=== PATIENT | female | born 1965 | race Caucasian/White ===

== ENCOUNTER 2024-09-16 11:54 | Inpatient (IN) | payer MEDICAID, OTHER ==
[~2024-09-16] VITALS: Ht 182.9 cm; Wt 73.7 kg
[2024-09-16 12:46] LABS: BASOPHILS % 0.5 % (0.0-2.0); EOSINOPHILS % 0.8 % (0.0-5.0); HEMATOCRIT. 32.6 % (36.0-48.0); HEMOGLOBIN. 10.6 g/dL (12.0-16.0); LYMPHOCYTES % 25.6 % (20.0-50.0); MEAN CORPUSCULAR HEMOGLOBIN 29.5 pg (28.0-32.0); MEAN CORPUSCULAR HGB CONC 32.5 g/dL (31.0-37.0); MEAN CORPUSCULAR VOLUME 90.7 fL (81.0-99.0); MEAN PLATELET VOLUME 7.5 fl (7.4-10.4); MONOCYTES % 8.8 % (2.0-8.0); NEUTROPHILS % 64.3 % (40.0-76.0); PLATELET 294 x1000/uL (130-400); RED BLOOD CELL COUNT 3.59 mill/uL (4.2-5.4); RED CELL DISTRIBUTION WIDTH 19.4 % (11.6-14.6); WHITE BLOOD COUNT 9.1 x1000/uL (4.5-11.0)
[2024-09-16 12:59] LABS: TROPONIN I HIGH SENSITIVITY 23 ng/L (3.0-34)
[2024-09-16 13:04] LABS: CHLORIDE 101 mEq/L (98-107); POTASSIUM 3.6 mEq/L (3.5-5.1); SODIUM 135 mEq/L (136-145)
[2024-09-16 13:07] LABS: CALCIUM 11.1 mg/dL (8.7-10.4); CARBON DIOXIDE 24 mEq/L (21-32)
[2024-09-16 13:10] LABS: CREATININE 0.8 mg/dL (0.6-1.0); UREA NITROGEN BLOOD 23 mg/dL (9-23)
[2024-09-16 13:12] LABS: GLUCOSE 115 mg/dL (70-105)
[2024-09-16 13:14] LABS: ALANINE AMINOTRANSFERASE 39 IU/L (10-49); ALBUMIN 4.1 g/dL (3.2-4.8); ASPARTATE AMINOTRANSFERASE 23 IU/L (<34); BILIRUBIN TOTAL 0.4 mg/dL (0.1-1.0); PROTEIN TOTAL 7.8 g/dL (6.0-8.3)
[2024-09-16] MEDS: ACETAMINOPHEN 325MG TABLET PO STA (16:07)
[2024-09-16] MEDS: ASPIRIN 81MG TABLET PO ONE (17:04)
[2024-09-16] MEDS ORDERED: GUAIFENESIN 200MG/10ML SUGAR FREE UDC PO PRN (17:15)
[2024-09-16] MEDS ORDERED: IPRATROPIUM/ALBUTEROL 0.5-3(2.5)MG/3ML NEB HHN PRN (17:15)
[2024-09-16] MEDS ORDERED: ACETAMINOPHEN 325MG TABLET PO PRN (17:15)
[2024-09-16] MEDS ORDERED: MAGNESIUM/ALUMINUM HYDROXIDE/SIMETHICONE 30ML UDC PO PRN (17:15)
[2024-09-16] MEDS ORDERED: ENOXAPARIN 40MG/0.4ML SYR SUBCUT SCH (17:15)
[2024-09-16] MEDS ORDERED: DOCUSATE SODIUM 100MG CAPSULE PO PRN (17:15)
[2024-09-16] MEDS ORDERED: ONDANSETRON HCL 4MG/2ML INJ IV PRN (17:15)
[2024-09-16] MEDS ORDERED: LORAZEPAM 2MG/ML INJ IV NR (17:45)
[2024-09-16 19:41] VITALS: BP 129/85; PULSE 95; RESP 19; TEMP 36.8
[2024-09-16 20:00] VITALS: BP 127/69; PULSE 76; RESP 24; TEMP 36.9; O2SAT 100
[2024-09-16 20:32] LABS: TROPONIN I HIGH SENSITIVITY 23 ng/L (3.0-34)
[2024-09-16 21:18] LABS: CLARITY URINE CLEAR (CLEAR); COLOR URINE YELLOW (YELLOW); GLUCOSE URINE NEGATIVE (NEGATIVE); KETONES URINE NEGATIVE (NEGATIVE); LEUKOCYTE ESTERASE URINE TRACE (NEGATIVE); NITRITE URINE NEGATIVE (NEGATIVE); OCCULT BLOOD URINE NEGATIVE (NEGATIVE); PROTEIN URINE NEGATIVE (NEGATIVE); SPECIFIC GRAVITY URINE 1.014 (1.005-1.030); UROBILINOGEN URINE 0.2 E.U./dL (0.2-1.0)
[2024-09-16 21:21] LABS: *AMPHETAMINES SCREEN URINE NEGATIVE (NEGATIVE); *BARBITURATES SCREEN URINE NEGATIVE (NEGATIVE); *BENZODIAZEPINES SCREEN URINE NEGATIVE (NEGATIVE); *COCAINE SCREEN URINE NEGATIVE (NEGATIVE); CANNABINOID URINE SCREEN NEGATIVE (NEGATIVE); ECSTASY MDMA SCREEN URINE NEGATIVE (NEGATIVE); METHADONE URINE SCREEN NEGATIVE (NEGATIVE); OPIATES URINE SCREEN PRESUMPTIVE POSITIVE (NEGATIVE); PHENCYCLIDINE URINE SCREEN NEGATIVE (NEGATIVE)
[2024-09-16 21:26] LABS: RBC URINE NONE SEEN /hpf (0-2); SQUAMOUS EPITHELIAL CELL URINE 1+ /lpf (RARE/1+)
[2024-09-16 21:27] LABS: BACTERIA URINE NONE SEEN
[2024-09-16] MEDS: SODIUM CHLORIDE 0.9% 1,000 ML IV SCH (21:34)
[2024-09-16] MEDS: ACETAMINOPHEN 325MG TABLET PO PRN (21:41)
[2024-09-16] MEDS: ATORVASTATIN CALCIUM 40MG TABLET PO SCH (22:52)
[2024-09-16] MEDS: ASPIRIN 81MG TABLET PO NR (22:52)
[2024-09-16] MEDS: MELATONIN 3MG TABLET PO SCH (23:44)
[2024-09-17] VITALS: BP 129/57; PULSE 76; RESP 22; TEMP 36.8; O2SAT 96
[2024-09-17 00:18] LABS: CHLORIDE 101 mEq/L (98-107); POTASSIUM 3.7 mEq/L (3.5-5.1); SODIUM 136 mEq/L (136-145)
[2024-09-17 00:19] LABS: CALCIUM 10.8 mg/dL (8.7-10.4); CARBON DIOXIDE 25 mEq/L (21-32); PROTHROMBIN TIME 10.9 sec (9.6-11.0)
[2024-09-17 00:24] LABS: CREATININE 0.8 mg/dL (0.6-1.0); GLUCOSE 114 mg/dL (70-105); TRIGLYCERIDE 194 mg/dL (0-150); UREA NITROGEN BLOOD 31 mg/dL (9-23)
[2024-09-17 00:25] LABS: LDL CHOLESTEROL 88 mg/dL (5-100); TROPONIN I HIGH SENSITIVITY 24 ng/L (3.0-34)
[2024-09-17 00:26] LABS: CHOLESTEROL 154 mg/dL (<200); CREATINE KINASE 25 IU/L (34-145); HDL CHOLESTEROL 37 mg/dL (>65)
[2024-09-17] MEDS ORDERED: MECLIZINE 25MG TABLET PO PRN (01:15)
[2024-09-17 04:00] VITALS: BP 156/67; PULSE 72; RESP 20; TEMP 36.7; O2SAT 98
[2024-09-17 08:00] VITALS: BP 148/48; PULSE 74; RESP 23; TEMP 36.9; O2SAT 96
[2024-09-17] MEDS ORDERED: CLOPIDOGREL 75MG TABLET PO SCH (09:00)
[2024-09-17] MEDS: PANTOPRAZOLE SODIUM 40 MG/VIAL IV SCH (09:57)
[2024-09-17 12:00] VITALS: BP 146/70; PULSE 78; RESP 19; TEMP 36.3; O2SAT 98
[2024-09-17 16:00] VITALS: PULSE 101; RESP 16
[2024-09-17 16:14] LABS: CARBON DIOXIDE 24 mEq/L (21-32); CHLORIDE 106 mEq/L (98-107); POTASSIUM 4.2 mEq/L (3.5-5.1); SODIUM 139 mEq/L (136-145)
[2024-09-17 16:15] LABS: CALCIUM 10.7 mg/dL (8.7-10.4)
[2024-09-17 16:19] LABS: CREATININE 0.8 mg/dL (0.6-1.0); GLUCOSE 126 mg/dL (70-105); IRON 46 ug/dL (50-170); TROPONIN I HIGH SENSITIVITY 20 ng/L (3.0-34)
[2024-09-17 16:20] LABS: UREA NITROGEN BLOOD 22 mg/dL (9-23)
[2024-09-17 16:21] LABS: ALANINE AMINOTRANSFERASE 34 IU/L (10-49); ALBUMIN 3.8 g/dL (3.2-4.8); ASPARTATE AMINOTRANSFERASE 23 IU/L (<34); CREATINE KINASE 32 IU/L (34-145)
[2024-09-17 16:22] LABS: BILIRUBIN TOTAL 0.3 mg/dL (0.1-1.0); PHOSPHORUS 2.8 mg/dL (2.5-4.9); TOTAL IRON BINDING CAPACITY 87 ug/dl (250-425)
[2024-09-17 16:23] LABS: THYROID STIMULATING HORMONE < 0.10 uIU/mL (0.55-4.78)
[2024-09-17 16:24] LABS: T4 FREE 1.97 ng/dL (0.89-1.76)
[2024-09-17] MEDS ORDERED: AMLODIPINE 10MG TABLET PO SCH (18:30)
[2024-09-17] MEDS: AMMONIUM LACTATE 12% LOTION 240ML TOP SCH (19:46)
[2024-09-17] MEDS: MAGNESIUM 2 G PREMIX 50 ML IV NR (19:46)
[2024-09-17] MEDS: SODIUM CHLORIDE 0.9% 1,000 ML IV SCH (19:49)
[2024-09-17 20:04] VITALS: BP 153/74; PULSE 78; RESP 22; TEMP 37; O2SAT 98
[2024-09-18] VITALS (7 sets, daily range): BP systolic 151–199; BP diastolic 70–90; PULSE 78–97; RESP 18–27; TEMP 36.6–36.9; O2SAT 94–100
[2024-09-18 07:42] LABS: HEMATOCRIT. 30.3 % (36.0-48.0); HEMOGLOBIN. 10.1 g/dL (12.0-16.0)
[2024-09-18 07:47] LABS: BASOPHILS % 0.8 % (0.0-2.0); EOSINOPHILS % 2.3 % (0.0-5.0); MEAN CORPUSCULAR HEMOGLOBIN 30.5 pg (28.0-32.0); MEAN CORPUSCULAR HGB CONC 33.5 g/dL (31.0-37.0); MEAN CORPUSCULAR VOLUME 91.2 fL (81.0-99.0); MEAN PLATELET VOLUME 7.8 fl (7.4-10.4); MONOCYTES % 9.8 % (2.0-8.0); NEUTROPHILS % 53.1 % (40.0-76.0); PLATELET 267 x1000/uL (130-400); RED BLOOD CELL COUNT 3.32 mill/uL (4.2-5.4); RED CELL DISTRIBUTION WIDTH 18.4 % (11.6-14.6); WHITE BLOOD COUNT 6.5 x1000/uL (4.5-11.0)
[2024-09-18 08:14] LABS: CARBON DIOXIDE 25 mEq/L (21-32); CHLORIDE 108 mEq/L (98-107); SODIUM 140 mEq/L (136-145)
[2024-09-18 08:15] LABS: CALCIUM 10.6 mg/dL (8.7-10.4)
[2024-09-18 08:20] LABS: CREATININE 0.8 mg/dL (0.6-1.0); GLUCOSE 110 mg/dL (70-105); UREA NITROGEN BLOOD 21 mg/dL (9-23)
[2024-09-18 08:37] LABS: THYROID STIMULATING HORMONE < 0.10 uIU/mL (0.55-4.78)
[2024-09-18] MEDS: AMLODIPINE 5MG TABLET PO SCH ×2 (10:18→21:28)
[2024-09-18] MEDS: ASPIRIN 81MG TABLET PO SCH (10:19)
[2024-09-18] MEDS ORDERED: HYDROXYZINE 25MG TABLET PO PRN (11:30)
[2024-09-18] MEDS: SERTRALINE HCL 25MG TABLET PO SCH (13:14)
[2024-09-18] MEDS: LORAZEPAM 0.5MG TABLET PO PRN (17:28)
[2024-09-18] MEDS: BUSPIRONE HCL 5MG TABLET PO SCH (21:28)
[2024-09-18] MEDS: METHIMAZOLE 5MG TABLET PO SCH (21:29)
[2024-09-19] VITALS (7 sets, daily range): BP systolic 148–189; BP diastolic 72–98; PULSE 82–106; RESP 16–31; TEMP 36.6–37.2; O2SAT 94–97
[2024-09-19] MEDS: HYDRALAZINE 20MG/ML VIAL IV PRN (01:06)
[2024-09-19 06:55] LABS: CALCIUM 10.3 mg/dL (8.7-10.4); CHLORIDE 108 mEq/L (98-107); POTASSIUM 3.7 mEq/L (3.5-5.1); SODIUM 141 mEq/L (136-145)
[2024-09-19 06:56] LABS: CARBON DIOXIDE 21 mEq/L (21-32)
[2024-09-19 07:02] LABS: CREATININE 0.7 mg/dL (0.6-1.0); GLUCOSE 116 mg/dL (70-105); UREA NITROGEN BLOOD 12 mg/dL (9-23)
[2024-09-19 07:09] LABS: EOSINOPHILS % 1.4 % (0.0-5.0); HEMATOCRIT. 31.3 % (36.0-48.0); HEMOGLOBIN. 10.1 g/dL (12.0-16.0); LYMPHOCYTES % 27.6 % (20.0-50.0); MEAN CORPUSCULAR HEMOGLOBIN 29.3 pg (28.0-32.0); MEAN CORPUSCULAR HGB CONC 32.1 g/dL (31.0-37.0); MEAN CORPUSCULAR VOLUME 91.2 fL (81.0-99.0); MEAN PLATELET VOLUME 8.4 fl (7.4-10.4); MONOCYTES % 7.1 % (2.0-8.0); NEUTROPHILS % 62.9 % (40.0-76.0); PLATELET 200 x1000/uL (130-400); RED BLOOD CELL COUNT 3.43 mill/uL (4.2-5.4); RED CELL DISTRIBUTION WIDTH 18.4 % (11.6-14.6); WHITE BLOOD COUNT 8.1 x1000/uL (4.5-11.0)
[2024-09-19] MEDS: PANTOPRAZOLE 40MG DR TABLET PO SCH (11:21)
[2024-09-19] MEDS: CLONIDINE 0.1MG TABLET PO SCH (14:56)
[2024-09-19] MEDS ORDERED: AMLO5TAB88 PO (15:23)
[2024-09-19] MEDS ORDERED: LIP40 PO (15:23)
[2024-09-19] MEDS ORDERED: CLON0.1T PO (15:23)
[2024-09-19] MEDS ORDERED: BUSP5TAB3 PO (15:23)
[2024-09-19] MEDS ORDERED: SERT25TA74 PO (15:23)
[2024-09-19] MEDS ORDERED: ASPI-1160 PO (15:23)
[2024-09-19] MEDS ORDERED: METH-371 PO (15:23)
[2024-09-19] MEDS: CLONIDINE 0.1MG TABLET PO PRN (16:48)
[2024-09-20] VITALS: BP 148/83; PULSE 76; RESP 18; TEMP 36.7; O2SAT 98
[2024-09-20 04:00] VITALS: BP 139/79; PULSE 83; RESP 17; TEMP 36.5; O2SAT 97
[2024-09-20 08:00] VITALS: BP 150/73; PULSE 76; RESP 24; TEMP 37.2; O2SAT 100
[2024-09-20 12:00] VITALS: BP 141/91; PULSE 91; RESP 25; TEMP 36.7; O2SAT 97
[2024-09-20 12:25] VITALS: TEMP 98.1
== END 2024-09-20 16:40 | disposition home health service (06) | DRG 313 ==
LOC: ER 13:23 → EDBEDREQ 16:53 → EDBEDREQTM 16:53 → 3WST 18:28
PROVIDERS: ADMIT Hospitalist; ATTEND Hospitalist
DX: R07.89 Other chest pain (principal); I69.354 Hemiplegia and hemiparesis following cerebral infarction affecting left non-dominant side; D64.9 Anemia, unspecified; F41.0 Panic disorder [episodic paroxysmal anxiety]; I10 Essential (primary) hypertension; I44.7 Left bundle-branch block, unspecified; I48.0 Paroxysmal atrial fibrillation; R26.89 Other abnormalities of gait and mobility; F31.9 Bipolar disorder, unspecified; E05.90 Thyrotoxicosis, unspecified without thyrotoxic crisis or storm; E83.52 Hypercalcemia; F41.1 Generalized anxiety disorder; E11.65 Type 2 diabetes mellitus with hyperglycemia; E78.5 Hyperlipidemia, unspecified; G83.9 Paralytic syndrome, unspecified; I11.9 Hypertensive heart disease without heart failure; K59.00 Constipation, unspecified; L89.619 Pressure ulcer of right heel, unspecified stage; Z74.01 Bed confinement status; Z79.01 Long term (current) use of anticoagulants; Z79.02 Long term (current) use of antithrombotics/antiplatelets; Z79.82 Long term (current) use of aspirin; Z88.0 Allergy status to penicillin; Z79.899 Other long term (current) drug therapy
CPT/HCPCS: 36415; 70544; 70551; 70553; 71045; 80048; 80053; 80061; 80305; 81003; 82164; 82330; 82550; 82962; 83520; 83540; 83550; 83735; 83880; 83970; 84100; 84155; 84165; 84439; 84443; 84481; 84484; 85025; 93005; 93306; 93970; 97162; 97166; 97530; 99285; A4606; A6261; J0360; J2470; J3475; J7030